=== PATIENT | female | born 1950 | race Two or more races ===

== ENCOUNTER 2021-11-16 11:05 | Inpatient (IN) | payer OTHER, MEDICAID ==
[~2021-11-16] VITALS: Ht 149.9 cm; Wt 95.9 kg
[2021-11-16] MEDS ORDERED: methylPREDNISolone SOD SUCC 125 MG/2 ML VL IV ONE (11:15)
[2021-11-16 12:01] LABS: Albumin 3.1 g/dL (3.4-5.0); BUN/Creatinine Ratio 20.8; Calcium 8.9 mg/dL (8.5-10.1); Magnesium 1.9 mg/dL (1.6-2.6); Potassium 4.6 mmol/L (3.5-5.1)
[2021-11-16 12:04] LABS: Bilirubin, Total 0.2 mg/dL (0.2-1.0)
[2021-11-16 12:06] LABS: Basophils # (auto) 0 10 ^3/uL (0-0.2); Basophils % (auto) 0.9 % (0.0-2.0); Eosinophils # (auto) 0.5 10 ^3/uL (0-0.8); Eosinophils % (auto) 9.4 % (0.0-7.0); Hemoglobin 9.9 g/dL (12.2-16.2); Lymphocytes # (auto) 1.1 10 ^3/uL (0.4-5.4); Lymphocytes % (auto) 19.7 % (10.0-50.0); Mean Corpuscular Hemoglobin 30.3 pg (28.0-32.0); Mean Corpuscular Volume 91.7 fL (80.0-100.0); Monocytes # (auto) 0.4 10 ^3/uL (0-1.3); Monocytes % (auto) 7.5 % (0.0-12.0); Neutrophils # (auto) 3.4 10 ^3/uL (1.6-8.6); Neutrophils % (auto) 62.5 % (37.0-80.0); Nucleated Red Blood Cells % 0.1 %; Red Blood Cells 3.27 10^6/uL (4.0-5.20); Red Cell Distribution Width 14.3 % (11.8-14.3); White Blood Cell 5.5 10^3/uL (4.4-10.8)
[2021-11-16] MEDS ORDERED: FUROSEMIDE 40 MG/4 ML VIAL IV ONE (14:15)
[2021-11-16] MEDS ORDERED: ACETAMINOPHEN 325 MG TAB PO PRN (17:45)
[2021-11-16] MEDS ORDERED: DOCUSATE SOD 100 MG CAP PO PRN (17:45)
[2021-11-16] MEDS ORDERED: ONDANSETRON HCL 4 MG/2 ML VIAL IV PRN (17:45)
[2021-11-16] MEDS ORDERED: MORPHINE SULFATE INJ 2 MG/ml SYRG IV PRN (17:45)
[2021-11-16] MEDS: HYDROcodone-ACET 5/325MG TAB PO PRN (20:53)
[2021-11-17] VITALS (7 sets, daily range): BP systolic 122–140; BP diastolic 52–90
[2021-11-17] MEDS ORDERED: GABA300C10 PO (02:02)
[2021-11-17] MEDS ORDERED: SULF400T (02:02)
[2021-11-17] MEDS ORDERED: CARI350T23 PO (02:02)
[2021-11-17] MEDS ORDERED: CEPH500C PO (02:02)
[2021-11-17] MEDS ORDERED: CHOL20003 PO (02:02)
[2021-11-17] MEDS ORDERED: OXYB5TAB61 PO (02:02)
[2021-11-17] MEDS ORDERED: PRED10TA PO (02:02)
[2021-11-17] MEDS ORDERED: PANT40T PO (02:02)
[2021-11-17] MEDS ORDERED: AMIO200T4 PO (02:02)
[2021-11-17] MEDS ORDERED: PREG-108 PO (02:02)
[2021-11-17] MEDS ORDERED: PRED20TA2 PO (02:02)
[2021-11-17] MEDS ORDERED: AZIT250T9 PO (02:02)
[2021-11-17] MEDS ORDERED: NITR100C6 PO (02:02)
[2021-11-17] MEDS ORDERED: MET25T PO (02:02)
[2021-11-17] MEDS ORDERED: FER325T PO (02:02)
[2021-11-17] MEDS ORDERED: METO-289 PO (02:02)
[2021-11-17] MEDS ORDERED: MECL-111 PO (02:02)
[2021-11-17] MEDS ORDERED: MAGN400T40 PO (02:02)
[2021-11-17] MEDS ORDERED: APIX5TAB PO (02:02)
[2021-11-17] MEDS ORDERED: LISI-716 PO (02:02)
[2021-11-17] MEDS ORDERED: DOXY100T2 PO (02:02)
[2021-11-17] MEDS ORDERED: METH4TAB47 PO (02:02)
[2021-11-17] MEDS ORDERED: FURO40TA4 PO (02:02)
[2021-11-17 05:28] LABS: Basophils # (auto) 0 10 ^3/uL (0-0.2); Basophils % (auto) 0.3 % (0.0-2.0); Eosinophils # (auto) 0 10 ^3/uL (0-0.8); Eosinophils % (auto) 0.2 % (0.0-7.0); Hematocrit 30.4 % (36.0-46.0); Hemoglobin 10.2 g/dL (12.2-16.2); Lymphocytes # (auto) 0.6 10 ^3/uL (0.4-5.4); Lymphocytes % (auto) 12.3 % (10.0-50.0); Mean Corpuscular Hgb Conc. 33.6 g/dL (32.0-36.0); Mean Corpuscular Volume 92.2 fL (80.0-100.0); Monocytes # (auto) 0.1 10 ^3/uL (0-1.3); Neutrophils # (auto) 4.5 10 ^3/uL (1.6-8.6); Neutrophils % (auto) 86.2 % (37.0-80.0); Nucleated Red Blood Cells % 0.1 %; Red Blood Cells 3.29 10^6/uL (4.0-5.20); Red Cell Distribution Width 14.4 % (11.8-14.3); White Blood Cell 5.3 10^3/uL (4.4-10.8)
[2021-11-17 05:50] LABS: Potassium 4.6 mmol/L (3.5-5.1)
[2021-11-17 06:04] LABS: Albumin 2.9 g/dL (3.4-5.0); BUN/Creatinine Ratio 23.2; Bilirubin, Total 0.4 mg/dL (0.2-1.0); Calcium 8.9 mg/dL (8.5-10.1); Total Protein 6.9 g/dL (6.4-8.2)
[2021-11-17] MEDS ORDERED: ENOXAPARIN SOD 40 MG/0.4 ML SYRINGE SC SCH (10:00)
[2021-11-17] MEDS ORDERED: GABAPENTIN 300 MG CAP PO PRN (13:00)
[2021-11-17] MEDS ORDERED: methylPREDNISolone SOD SUCC 40 MG/ML VL IV ONE (13:15)
[2021-11-17] MEDS ORDERED: FUROSEMIDE 40 MG TAB PO ONE (13:30)
[2021-11-17] MEDS ORDERED: CARISOPRODOL 350 MG TAB PO PRN (13:30)
[2021-11-17] MEDS ORDERED: AZITHROMYCIN 500MG/ 250ML 250 ML IV ONE (13:30)
[2021-11-17] MEDS ORDERED: cefTRIAXone 1GM/50ML D5W 50 ML IV ONE (13:30)
[2021-11-17] MEDS ORDERED: methylPREDNISolone SOD SUCC 125 MG/2 ML VL IV SCH (14:00)
[2021-11-17] MEDS: PREGABALIN 25 MG CAP PO SCH ×2 (14:32→21:25)
[2021-11-17] MEDS: HYDROcodone-ACET 5/325MG TAB PO PRN ×2 (14:33→21:26)
[2021-11-17] MEDS: ALBUTEROL SULF 2.5 MG/0.5ML(0.5%) NEB SOLN NEB SCH ×3 (14:53→23:04)
[2021-11-17] MEDS ORDERED: VANCOMYCIN 1GM/250ML 250 ML IV ONE (16:30)
[2021-11-17] MEDS ORDERED: VANCOMYCIN PER PHARMACY 0 MG IV SCH (16:30)
[2021-11-17] MEDS: methylPREDNISolone SOD SUCC 40 MG/ML VL IV SCH (21:25)
[2021-11-17] MEDS: MAGNESIUM OXIDE 400 MG TAB PO SCH (21:25)
[2021-11-17] MEDS: APIXABAN 5 MG TAB PO SCH (21:26)
[2021-11-18] MEDS: HYDROcodone-ACET 5/325MG TAB PO PRN ×3 (04:55→16:33)
[2021-11-18 05:00] VITALS: BP 126/67
[2021-11-18] MEDS: PREGABALIN 25 MG CAP PO SCH ×3 (05:52→21:44)
[2021-11-18] MEDS: ALBUTEROL SULF 2.5 MG/0.5ML(0.5%) NEB SOLN NEB SCH ×5 (06:33→22:13)
[2021-11-18 06:40] LABS: BUN/Creatinine Ratio 22.1; Calcium 9.1 mg/dL (8.5-10.1); Potassium 4.6 mmol/L (3.5-5.1)
[2021-11-18 08:00] VITALS: BP 137/64
[2021-11-18 09:00] VITALS: BP 137/64
[2021-11-18] MEDS: cefTRIAXone 1GM/50ML D5W 50 ML IV SCH (09:43)
[2021-11-18] MEDS: AZITHROMYCIN 500MG/ 250ML 250 ML IV SCH (09:53)
[2021-11-18] MEDS: methylPREDNISolone SOD SUCC 40 MG/ML VL IV SCH ×2 (09:56→21:44)
[2021-11-18] MEDS: METOPROLOL SUCCINATE XL 50 MG TAB PO SCH (09:57)
[2021-11-18] MEDS: MAGNESIUM OXIDE 400 MG TAB PO SCH ×2 (09:57→21:44)
[2021-11-18] MEDS: LISINOPRIL 10 MG TAB PO SCH (09:58)
[2021-11-18] MEDS: AMIODARONE HCL 200 MG TAB PO SCH (09:58)
[2021-11-18] MEDS: PANTOPRAZOLE 40 MG TAB PO SCH (09:58)
[2021-11-18] MEDS: APIXABAN 5 MG TAB PO SCH ×2 (09:58→21:44)
[2021-11-18] MEDS: FUROSEMIDE 40 MG TAB PO SCH (09:59)
[2021-11-18 13:00] VITALS: BP 148/86
[2021-11-18 17:00] VITALS: BP 137/83
[2021-11-18] MEDS ORDERED: VANCOMYCIN 750mg/250ml 250 ML IV SCH (18:00)
[2021-11-18 22:00] VITALS: BP 147/73
[2021-11-19 05:00] VITALS: BP 134/70
[2021-11-19 05:48] LABS: Basophils # (auto) 0 10 ^3/uL (0-0.2); Basophils % (auto) 0.2 % (0.0-2.0); Eosinophils # (auto) 0 10 ^3/uL (0-0.8); Hematocrit 29.2 % (36.0-46.0); Hemoglobin 10.3 g/dL (12.2-16.2); Lymphocytes % (auto) 12.1 % (10.0-50.0); Mean Corpuscular Hemoglobin 31.8 pg (28.0-32.0); Mean Corpuscular Hgb Conc. 35.2 g/dL (32.0-36.0); Mean Corpuscular Volume 90.4 fL (80.0-100.0); Monocytes # (auto) 0.5 10 ^3/uL (0-1.3); Monocytes % (auto) 5.8 % (0.0-12.0); Neutrophils # (auto) 7.1 10 ^3/uL (1.6-8.6); Neutrophils % (auto) 81.9 % (37.0-80.0); Nucleated Red Blood Cells % 0.1 %; Red Blood Cells 3.23 10^6/uL (4.0-5.20); Red Cell Distribution Width 14.2 % (11.8-14.3); White Blood Cell 8.7 10^3/uL (4.4-10.8)
[2021-11-19 06:22] LABS: BUN/Creatinine Ratio 25.5; Calcium 9.6 mg/dL (8.5-10.1); Potassium 4.6 mmol/L (3.5-5.1)
[2021-11-19] MEDS: PREGABALIN 25 MG CAP PO SCH ×3 (06:25→21:38)
[2021-11-19] MEDS: ALBUTEROL SULF 2.5 MG/0.5ML(0.5%) NEB SOLN NEB SCH ×5 (06:46→22:48)
[2021-11-19 08:00] VITALS: BP 140/73
[2021-11-19] MEDS: cefTRIAXone 1GM/50ML D5W 50 ML IV SCH (08:00)
[2021-11-19 09:00] VITALS: BP 140/73
[2021-11-19] MEDS: methylPREDNISolone SOD SUCC 40 MG/ML VL IV SCH ×2 (09:34→21:38)
[2021-11-19] MEDS: AZITHROMYCIN 500MG/ 250ML 250 ML IV SCH (09:35)
[2021-11-19] MEDS: APIXABAN 5 MG TAB PO SCH ×2 (09:35→21:38)
[2021-11-19] MEDS: MAGNESIUM OXIDE 400 MG TAB PO SCH ×2 (09:35→21:38)
[2021-11-19] MEDS: AMIODARONE HCL 200 MG TAB PO SCH (09:35)
[2021-11-19] MEDS: PANTOPRAZOLE 40 MG TAB PO SCH (09:35)
[2021-11-19] MEDS: LISINOPRIL 10 MG TAB PO SCH (09:36)
[2021-11-19] MEDS: METOPROLOL SUCCINATE XL 50 MG TAB PO SCH (09:36)
[2021-11-19] MEDS: FUROSEMIDE 40 MG TAB PO SCH (09:37)
[2021-11-19] MEDS: VANCOMYCIN 1GM/250ML 250 ML IV SCH (12:00)
[2021-11-19 13:00] VITALS: BP 139/71
[2021-11-19 17:00] VITALS: BP 146/83
[2021-11-19] MEDS: HYDROcodone-ACET 5/325MG TAB PO PRN (17:18)
[2021-11-19] MEDS: MUPIROCIN 2% OINT 15gm or 22gm FOR MRSA NARES EACHNOSTRI SCH (21:38)
[2021-11-19 22:00] VITALS: BP 118/57
[2021-11-20] VITALS (8 sets, daily range): BP systolic 109–149; BP diastolic 57–91
[2021-11-20] MEDS: ALBUTEROL SULF 2.5 MG/0.5ML(0.5%) NEB SOLN NEB SCH ×5 (06:23→19:31)
[2021-11-20] MEDS: PREGABALIN 25 MG CAP PO SCH ×2 (06:32→15:02)
[2021-11-20] MEDS: cefTRIAXone 1GM/50ML D5W 50 ML IV SCH (08:02)
[2021-11-20] MEDS: AZITHROMYCIN 500MG/ 250ML 250 ML IV SCH (09:56)
[2021-11-20] MEDS: METOPROLOL SUCCINATE XL 50 MG TAB PO SCH (09:57)
[2021-11-20] MEDS: methylPREDNISolone SOD SUCC 40 MG/ML VL IV SCH (09:57)
[2021-11-20] MEDS: APIXABAN 5 MG TAB PO SCH (09:57)
[2021-11-20] MEDS: PANTOPRAZOLE 40 MG TAB PO SCH (09:57)
[2021-11-20] MEDS: AMIODARONE HCL 200 MG TAB PO SCH (09:57)
[2021-11-20] MEDS: MAGNESIUM OXIDE 400 MG TAB PO SCH (09:58)
[2021-11-20] MEDS: LISINOPRIL 10 MG TAB PO SCH (09:58)
[2021-11-20] MEDS: FUROSEMIDE 40 MG TAB PO SCH (09:59)
[2021-11-20] MEDS: MUPIROCIN 2% OINT 15gm or 22gm FOR MRSA NARES EACHNOSTRI SCH (09:59)
[2021-11-20] MEDS ORDERED: DOXY-286 PO (11:34)
[2021-11-20] MEDS: VANCOMYCIN 1GM/250ML 250 ML IV SCH (12:00)
[2021-11-20] MEDS: HYDROcodone-ACET 5/325MG TAB PO PRN (15:03)
== END 2021-11-20 22:10 | disposition home or self-care (01) | DRG 871 ==
LOC: EDBD 11:05 → ER 11:05 → TELE 17:40 → TELE-EAST 11-17 00:32
PROVIDERS: ADMIT Internal Medicine; ATTEND Internal Medicine Geriatric Medicine
DX: A41.9 Sepsis, unspecified organism (principal); I50.33 Acute on chronic diastolic (congestive) heart failure; J96.21 Acute and chronic respiratory failure with hypoxia; J44.1 Chronic obstructive pulmonary disease with (acute) exacerbation; N17.9 Acute kidney failure, unspecified; N39.0 Urinary tract infection, site not specified; Z68.41 Body mass index [BMI] 40.0-44.9, adult; I13.0 Hypertensive heart and chronic kidney disease with heart failure and stage 1 through stage 4 chronic kidney disease, or unspecified chronic kidney disease; L03.119 Cellulitis of unspecified part of limb; Z20.822 Contact with and (suspected) exposure to COVID-19; E11.22 Type 2 diabetes mellitus with diabetic chronic kidney disease; E88.09 Other disorders of plasma-protein metabolism, not elsewhere classified; D64.9 Anemia, unspecified; N18.9 Chronic kidney disease, unspecified; E66.01 Morbid (severe) obesity due to excess calories; I48.91 Unspecified atrial fibrillation; Z74.01 Bed confinement status; Z79.01 Long term (current) use of anticoagulants; Z79.899 Other long term (current) drug therapy; Z90.49 Acquired absence of other specified parts of digestive tract
CPT/HCPCS: 36415; 71045; 80048; 80053; 82565; 83605; 83735; 83880; 84484; 85025; 87040; 87077; 87081; 87186; 93005; 93306; 94640; 96374; 96375; 97163; G0378; J0696